=== PATIENT | female | born 1995 | race Hispanic/Latino ===

== ENCOUNTER 2017-10-02 10:40 | Inpatient (IN) | payer OTHER ==
[~2017-10-02] VITALS: Ht 149.9 cm; Wt 66.7 kg
[2017-10-02] VITALS (9 sets, daily range): BP systolic 113–132; BP diastolic 59–79
--- NOTE | 2017-10-02 10:45 | NUR ---
PT TO UNIT AMBULATORY FOR NST, FROM MD OFFICE, POSSIBLE EARLY LABOR. PT WEIGHED, HEIGHT MEASURED, TO ROOM 253, TO BATHROOOM TO OBTAIN MIDSTREAM URINE SPEC,
[2017-10-02] MEDS ORDERED: PRE-NATAL PO (11:11)
[2017-10-02] MEDS ORDERED: IRON325 M1 PO (11:13)
[2017-10-02 11:22] LABS: URINE BLOOD DIPSTICK TRACE-INTACT (NEGATIVE); URINE COLOR YELLOW; URINE GLUCOSE - DIPSTICK NEGATIVE (NEGATIVE); URINE KETONE >=80 mg/dL (NEGATIVE); URINE NITRITE - DIPSTICK NEGATIVE (Negative); URINE PH 6.5 (4.5-8.0); URINE PROTEIN - DIPSTICK TRACE mg/dL (NEG-TRACE); URINE SPECIFIC GRAVITY 1.025
--- NOTE | 2017-10-02 11:22 | NUR ---
1058 EFM APPLIED, CONTR PALPATED MODERATE. PT STATES CONTR STARTED MONDAY, STRONGER TODAY AT O300. NOW Q [address] MAURER ON UNIT PT MAY BE OOB TO WALK, POSSIBLE EARLY LABOR. 1113 FH 144 MOD VARIABILITY, PT TO L TILT POSITION. 1122 REACTIVE NST, CONTR Q 3-9 MON APART, MODERATE.
[2017-10-02 11:23] LABS: URINE BILIRUBIN - DIPSTICK SMALL (NEGATIVE); URINE CLARITY SL CLOUDY; URINE LEUK ESTERASE TRACE (NEGATIVE)
[2017-10-02 11:24] LABS: BARBITURATES NEGATIVE (NEGATIVE); COCAINE NEGATIVE (NEGATIVE); METHADONE NEGATIVE (NEGATIVE); OXCYCODONE NEGATIVE (NEGATIVE); TETRAHYDROCANNABIONOL NEGATIVE (NEGATIVE); TRICYLIC ANTIDEPRESSANTS NEGATIVE (NEGATIVE)
--- NOTE | 2017-10-02 11:44 | NUR ---
PT OOB TO WALK IN [place], PT SIPPING JUICE.
--- NOTE | 2017-10-02 12:25 | NUR ---
EFM RESUMED, PT SITS IN ROCKING CHAIR. TO CONTINUE TO WATCH PT PER DR MAURER, PT MAY EAT LUNCH, MD WILL RETURN LATER TO CHECK PT.
--- NOTE | 2017-10-02 13:04 | NUR ---
PT SITS IN ROCKING CHAIR, SERVED MEAL.
--- NOTE | 2017-10-02 13:39 | NUR ---
SITS IN ROCKING CHAIR.
--- NOTE | 2017-10-02 14:15 | NUR ---
PT ATE ONLY FRUIT, DOES NOT FEEL TOO HUNGRY. TO BATHROOM, THEN TO BED.
--- NOTE | 2017-10-02 15:12 | NUR ---
DR MAURER IN TO SEE PT, VE 2CM, 100%, 0 STA. PT TO BE ON OBSERVATION.
--- NOTE | 2017-10-02 15:30 | NUR ---
PT OOB WALKING IN [place].
--- NOTE | 2017-10-02 16:15 | NUR ---
IV START LFA, BLOOD DRAW FOR LABS. PT RESTS WELL BETWEEN CONTR ENC TO SIP LIQUIDS PO.
--- NOTE | 2017-10-02 16:45 | NUR ---
PT IN BED, ON R SIDE. USES BRT WITH SOME CONTR, RESTS BETWEEN CONTR.
[2017-10-02 16:55] LABS: HEMATOCRIT 35.1 % (37.0-47.0); HEMOGLOBIN 11.3 g/dl (12.0-16.0); IMMATURE GRANULOCYTES 0.5 % (0.0-1.0); MEAN CELL VOLUME 84.2 fL CALC (80.0-100.0); MEAN CORPUSCULAR HGB 27.1 pG CALC (26.0-32.0); MEAN CORPUSCULAR HGB CONC 32.2 g/L CALC (32.0-36.0); NEUT# 13.83 thou/uL (2.00-7.15); RED BLOOD COUNT 4.17 mill/uL (4.20-5.60); RED CELL DISTRI WIDTH 15.1 % (11.5-15.5)
[2017-10-02 17:22] LABS: ALBUMIN 3.6 g/dL (3.2-5.0); ALKALINE PHOSPHATASE 263 u/l (38-126); ANION GAP 15 (6-22 (CALC)); BILIRUBIN, TOTAL 0.6 mg/dL (0.0-1.4); BUN 6 mg/dL (7-17); BUN/CREATININE RATIO 13 (12-20 (CALC)); CALCIUM 9.9 mg/dL (8.4-10.2); CARBON DIOXIDE 20 mmol/l (22-30); CHLORIDE 106 mmol/l (95-108); CREATININE 0.5 mg/dL (0.5-1.0); GFR > 60 ML/MIN (>=60 (CALC)); GFR FOR AFR.AMER. > 60 ML/MIN (>=60 (CALC)); GLUCOSE 101 mg/dL (65-105); POTASSIUM 3.9 mmol/l (3.5-5.1); SGOT/AST 37 u/l (14-36); SGPT/ALT 19 u/l (9-52); SODIUM 137 mmol/l (137-146); TOTAL PROTEIN 6.7 g/dL (6.3-8.2)
--- NOTE | 2017-10-02 17:30 | NUR ---
PT OOB TO VOID, THEN TO ROCKING CHAIR.
--- NOTE | 2017-10-02 18:15 | NUR ---
PT SITS IN ROCKING CHAIR, ATE APPLESAUCE. DR MAURER IN TO SEE PT, PT ENC TO TAKE NUBAIN TO REST.
--- NOTE | 2017-10-02 18:30 | NUR ---
PT TALKS WITH VISITORS, RESTS BETWEEN CONTR, WILL LET US KNOW WHEN SHE WANTS TO GET IN BED AND REST.
--- NOTE | 2017-10-02 18:45 | NUR ---
REPORT TO ONCOMIMG NURSE IN PT ROOM.
--- NOTE | 2017-10-02 19:00 | NUR ---
REPORT ON PT. RECEIVED FROM MARCIO GILES. PT.RECEIVED SITTING OOB IN CHAIR. TOLERATING MILD UTERINE CONTRACTIONS. AFEBRILE. VITAL SIGNS WITHIN NORMAL LIMITS. IV, LR INFUSING EXTERNAL MONITORING IN PROCESS.RELATIVED IN ROOM WITH PT.
--- NOTE | 2017-10-02 21:09 | NUR ---
UP AND SHOWERED PER HER REQUEST. UTERINE CONTRACTIONS REMAIN MILD-MOD. PLAN FOR SEDATIVE AND Q4H VITAL SIGNS PER MD'S ORDER DISCUSSED WITH PATIENT AND SHE ACCEPTS THE PLAN.
--- NOTE | 2017-10-02 23:30 | NUR ---
PT. REQUESTING MEDICATION FOR PAIN/SLEEP.UTERINE CONTRACTIONS STILL MILD AND IRREGULAR IN INTENSITY AND FREQUENCY, PT. GIVEN NUBAIN 10MG IV. CONTINUOUS MONITORING D/C.
[2017-10-03] VITALS (14 sets, daily range): BP systolic 111–135; BP diastolic 55–74
--- NOTE | 2017-10-03 01:31 | NUR ---
PT ASLEEP AFTER MEDICATION ADMINISTRATION FOR PAIN.
--- NOTE | 2017-10-03 05:06 | NUR ---
PT. SLEPT WELL AFTER RECEIVING IV NUBAIN . SHE AWAKEN THIS MORNING WITH Q5-6MIN CONTRACTIONS. NO ROM OR VAG. BLEEDING,COPING WITH CONTRACTIONS.
--- NOTE | 2017-10-03 07:08 | NUR ---
EFM RESTARTED, PT REPOSITIONED TO LEFT TILT. VS AND ASSESSMENT DONE, STABLE. RATES PAIN 8 OUT OF 10 WHEN SHE HAS A CONTRACTION, BREATHING HEAVY. DISCUSSED PLAN OF CARE WITH PT, PT VERBALIZED UNDERSTANDING. SIGNIFICANT OTHER AT BEDSIDE.
--- NOTE | 2017-10-03 07:23 | NUR ---
DR. MAURER AT BEDSIDE, SVE DONE, %/+1. AROM FOR CLEAR FLUID AT 0724.
--- NOTE | 2017-10-03 07:45 | NUR ---
PT UP TO BATHROOM TO VOID. NOTED LARGE AMOUNT OF BRIGHT BLOOD ON CHUX, DIAMETER OF ABOUT 20 INCHES WITH A CLOT ABOUT THE SIZE OF 2 IN X 1 IN. PT BACK TO BED ON LEFT TILT. DR. MAURER IN UNIT AND CALLED TO BEDSIDE. SHOWED THE CHUX. PLAN TO MONITOR PT AND KEEP PT IN BED AT THIS TIME. IF NO FURTHER BLEEDING, THEN PT MAY GET UP AND WALK. CATEGORY I TRACING PRESENT. DISCUSSED PLAN OF CARE WITH PT AND SIGNIFICANT OTHER, PT VERBALIZED UNDERSTANDING.
--- NOTE | 2017-10-03 08:00 | NUR ---
NO FURTHER VAGINAL BLEEDING NOTED.
--- NOTE | 2017-10-03 08:22 | NUR ---
PT REPOSITIONED TO RIGHT LATERAL WITH PEANUT BALL UNDER LEFT LEG.
--- NOTE | 2017-10-03 08:37 | NUR ---
PT BREATHING WELL WITH CONTRACTIONS, PT C/O MOSTLY BACK PAIN. DISCUSSED BACK LABOR WITH PT AND POSITIONS WE COULD TRY TO HELP HER PAIN. PT VERBALIZED UNDERSTANDING. NO FURTHER VAGINAL BLEDING NOTED. SUPPORT PERSON AT BEDSIDE. WILL CONTINUE TO MONITOR.
--- NOTE | 2017-10-03 08:44 | NUR ---
PT UP TO VOID, 50 ML OF CLEAR YELLOW URINE. THEN BACK TO BED, ON RIGHT LATERAL WITH PEANUT BALL UNDER LEFT LEG.
--- NOTE | 2017-10-03 08:57 | NUR ---
PT REQUESTING TO GET IN THE HOT SHOWER. SVE DONE, /+1. IVF SALINE LOCKED, ASSISTED TO SHOWER. WILL MOVE PT TO BIRTHING ROOM #1 AFTER SHOWER.
--- NOTE | 2017-10-03 09:19 | NUR ---
PT AMBULATED FROM SHOWER TO BIRTHING ROOM #1, EFM RESTARTED. IVF RESTARTED WELL. PT REQUESTING NUBAIN FOR PAIN.
--- NOTE | 2017-10-03 09:20 | NUR ---
SVE DONE, 7/100%/+1. NUBAIN GIVEN AT 0923 DURING CONTRACTION. PT REPOSITIONED TO LEFT LATERAL WITH PEANUT BALL UNDER RIGHT LEG. NO FURTHER VAGINAL BLEEDING NOTED.
--- NOTE | 2017-10-03 09:57 | NUR ---
PT REPOSITIONED TO RIGHT TILT, WITH PEANUT BALL UNDER LEFT LEG. REPORTS SOME PAIN RELIEF FROM NUBAIN. RESTING BETWEEN CONTRACTIONS. FAMILY AT BEDSIDE SUPPORTING PT.
--- NOTE | 2017-10-03 10:07 | NUR ---
PT UP TO BATHROOM, VOIDED 100ML, STANDING UP AT SIDE OF BED, SWAYING SIDE TO SIDE AT THIS TIME.
--- NOTE | 2017-10-03 10:14 | NUR ---
PT BACK TO BED PER HER REQUEST, ON RIGHT TILT WITH PEANUT BALL UNDER LEFT LEG, STARTING TO C/O PRESSURE WITH CONTRACTIONS.
--- NOTE | 2017-10-03 10:23 | NUR ---
PT C/O INCREASED PRESSURE, LIKE SHE HAS TO PUSH, SVE DONE, 7-8/100%/+1. ENCOURAGED PT TO KEEP BREATHING WITH EACH CONTRACTION.
--- NOTE | 2017-10-03 10:43 | NUR ---
PT REPOSITIONED TO LEFT TILT WITH PEANUT BALL UNDER RIGHT LEG.
--- NOTE | 2017-10-03 10:50 | NUR ---
PT UP TO BATHROOM, VOIDED 75ML, THEN BACK TO BED, ON LEFT TILT WITH PEANUT BALL UNDER RIGHT LEG.
--- NOTE | 2017-10-03 11:18 | NUR ---
PT UP TO VOID, VOIDED 50ML, THEN BACK TO BED. WHILE PT WAS WALKING, PT STATES "I HAVE TO POOP". ASSISTED PT BACK TO BED, SVE DONE, 10/100%/+1 TO +2.
--- NOTE | 2017-10-03 11:21 | NUR ---
DR. MAURER CALLED TO COME IN FOR DELIVERY. ON HIS WAY.
--- NOTE | 2017-10-03 11:25 | NUR ---
COACHING PT TO BREATH THROUGH CONTRACTIONS, BUT FETUS DESCENDING TO +2 TO +3 STATION WITH CONTRACTIONS. ER DOCTOR CALLED TO ATTEND DELIVERY.
--- NOTE | 2017-10-03 11:28 | NUR ---
DR. SMITH (ER DOCTOR) AT BEDSIDE.
--- NOTE | 2017-10-03 11:30 | NUR ---
DR. MAURER AT BEDSIDE, PREPPING FOR .
--- NOTE | 2017-10-03 11:35 | NUR ---
OF FEMALE INFANT BY DR. MAURER. SEE DELIVERY ROOM RECORD FOR FURTHER DOCUMENTATION.
--- NOTE | 2017-10-03 11:39 | NUR ---
PLACENTA OUT AT THIS TIME. FUNDUS BOGGY, MASSAGING, HEAVY LOCHIA PRESENT. PITOCIN 10 UNITS IN 1000ML STARTED BOLUSING.
--- NOTE | 2017-10-03 11:42 | NUR ---
PO CYTOTEC GIVEN. CONTINUE WITH FUNDUS MASSAGE, FUNDUS BOGGY, EXTRA STAFF CALLED IN ROOM TO HELP.
--- NOTE | 2017-10-03 11:45 | NUR ---
FUNDUS FIRM AT THIS TIME, LOCHIA DECREASED TO MODERATE TO LIGHT.
--- NOTE | 2017-10-03 11:49 | NUR ---
ADDITIONAL 10 UNITS OF PITOCIN ADDED TO IVF, WHICH REMAINS INFUSING AT BOLUS RATE.
--- NOTE | 2017-10-03 12:15 | NUR ---
IVF RATE REDUCED TO 125ML/H, PT STABLE.
--- NOTE | 2017-10-03 12:45 | NUR ---
PT UP TO BATHROOM, VOIDED, PERICARE DONE, PANTIES, PADS PLACED WELL ICE PACK. TUCKS AND [place]INE USED WELL. RECENTLY MEDICATED WITH MOTRIN FOR PERINEAL PAIN. PT TOLERATED ACTIVITY WELL.
--- NOTE | 2017-10-03 13:00 | NUR ---
PT TRANSFERED TO ROOM 205 VIA WHEELCHAIR IN STABLE CONDITION. INITIAL POST TEACHING DONE, PT VERBALIZED UNDERSTANDING. ORIENTED TO ROOM. FAMILY REMAINS AT BEDSIDE. LUNCH PROVIDED.
--- NOTE | 2017-10-03 14:52 | NUR ---
PT RESTING IN BED, HOLDING , POSITIVE BONDING. RECENTLY GOT UP TO VOID AGAIN, STABLE. DENIES ANY NEEDS.
--- NOTE | 2017-10-03 15:54 | NUR ---
PT VISITING WITH FRIENDS. SCHEDULED CYTOTEC GIVEN AT THIS TIME. DENIES ANY NEEDS.
--- NOTE | 2017-10-03 16:22 | NUR ---
IVF WITH PITOCIN DONE INFUSING, PT SALINE LOCKED AT THIS TIME, IV FLUSHED WELL. VS DONE, STABLE, DENIES ANY PAIN. VISITING WITH FAMILY AND FRIENDS.
[2017-10-04] VITALS: BP 110/66
[2017-10-04 05:48] LABS: HEMATOCRIT 29.4 % (37.0-47.0); HEMOGLOBIN 9.5 g/dl (12.0-16.0); IMMATURE GRANULOCYTES 0.4 % (0.0-1.0); MEAN CELL VOLUME 85.5 fL CALC (80.0-100.0); MEAN CORPUSCULAR HGB 27.6 pG CALC (26.0-32.0); MEAN CORPUSCULAR HGB CONC 32.3 g/L CALC (32.0-36.0); NEUT# 9.56 thou/uL (2.00-7.15); RED BLOOD COUNT 3.44 mill/uL (4.20-5.60); RED CELL DISTRI WIDTH 15.4 % (11.5-15.5)
[2017-10-04 06:00] VITALS: BP 120/70
[2017-10-04 08:20] VITALS: BP 103/64
--- NOTE | 2017-10-04 08:20 | NUR ---
PT RESTING IN BED, VS AND ASSESSMENT DONE, STABLE. DENIES ANY PAIN. SALINE LOCK REMOVED, TIP INTACT, 2X2 APPLIED. DISCUSSED PLAN OF CARE WITH PT, INCLUDING WATCHING TIGR EDUCATIONAL VIDEOS IN PREPARATION FOR DISCHARGE. PT VERBALIZED UNDERSTANDING.
[2017-10-04] MEDS ORDERED: IBUPROFEN600 MG PO (09:48)
--- NOTE | 2017-10-04 13:50 | NUR ---
DISCHARGE INSTRUCTIONS GIVEN TO PT, INCLUDING WHEN TO FOLLOW UP WITH MD. RX FOR MOTRIN GIVEN WELL. TDAP AND MMR VACCINE ADMINISTERED. ALL QUESTIONS ANSWERED. PT VERBALIZED UNDERSTANDING.
--- NOTE | 2017-10-04 14:15 | NUR ---
PT DISCHARGED HOME, IN STABLE CONDITION, VIA WHEELCHAIR, WITH FAMILY MEMBER.
== END 2017-10-04 14:15 | disposition home or self-care (01) | DRG 775 ==
LOC: OBOP 10:40 → OB 11:30 → OBOP 15:11 → OB 15:12
PROVIDERS: ADMIT Obstetrics & Gynecology; ATTEND Obstetrics & Gynecology
PROC: 10E0XZZ Delivery of Products of Conception, External Approach (ICD-10-PCS; principal; 2017-10-03)
PROC: 10907ZC Drainage of Amniotic Fluid, Therapeutic from Products of Conception, Via Natural or Artificial Opening (ICD-10-PCS; 2017-10-03)
DX: O80 Encounter for full-term uncomplicated delivery (principal); Z37.0 Single live birth; Z3A.38 38 weeks gestation of pregnancy

== ENCOUNTER 2022-06-13 15:56 | Emergency (ER) | payer OTHER ==
[~2022-06-13] VITALS: Ht 149.9 cm; Wt 67.7 kg
[~2022-06-13 15:56] MED LIST: IBUPROFEN600 MG PO; IRON325 M1 PO; PRE-NATAL PO
[2022-06-13 16:39] VITALS: BP 124/82
[2022-06-13 16:45] VITALS: BP 122/73
[2022-06-13 17:00] VITALS: BP 116/75
[2022-06-13 17:15] VITALS: BP 116/56
[2022-06-13 17:41] VITALS: BP 104/68
[2022-06-13 17:44] VITALS: BP 104/68
== END 2022-06-13 17:56 | disposition home or self-care (01) ==
LOC: ED 15:56
DX: S93.402A Sprain of unspecified ligament of left ankle, initial encounter (principal); X50.0XXA Overexertion from strenuous movement or load, initial encounter; Y93.89 Activity, other specified; Y92.009 Unspecified place in unspecified non-institutional (private) residence as the place of occurrence of the external cause